=== PATIENT | male | born 1990 | race African-American/Black ===

== ENCOUNTER 2017-01-15 14:38 | Emergency (ER) | payer OTHER ==
[~2017-01-15 14:38] MED LIST: BENTYL20 MG DOB; BENZONATATE PO; CARAFATE1 G PO; CARAFATE1 GM PO; CIPRO PO; EC-NAPROSYN500 MG PO; FAMOTIDINE PO; FLEXERIL PO; FLEXERIL10 MG PO; KEFLEX500 M1 PO; KEFLEX500 MG PO; MOTRIN600 MG PO; NEXIUM20 MG PO; NO HOME MEDS; NO MEDICATIONS; NORCO 5/325 TAB1 TAB PO; OMEPRAZOLE20 M2 PO; OMEPRAZOLE40 M1 PO; PEPCID AC20 M2 PO; PHENERGAN SUPP25 M1 PR; PHENERGAN25 M1 PO; PHENERGAN25 MG PO; PRILOSEC PO; PRILOSEC20 MG PO; PROTONIX20 MG PO; REGLAN PO; ROBITUSSIN15 MG PO; ZOFRAN ODT4 MG PO; ZOFRAN ODT4 MG/UDTAB DOB; ZOFRAN ODT4 MG/UDTAB PO; ZOFRAN PO; ZOFRAN8 MG PO; ZOFRANODT PO; ZOFRANODT SL
== END 2017-01-15 15:47 | disposition home or self-care (01) ==
LOC: SED 14:38
DX: L03.011 Cellulitis of right finger (principal)
CPT/HCPCS: 10060; 99283

== ENCOUNTER 2017-07-23 15:26 | Emergency (ER) | payer OTHER ==
[~2017-07-23] VITALS: Ht 182.9 cm; Wt 131.5 kg
--- NOTE | ~2017-07-23 | CR181 ---
[facility]. [facility] A Service of [facility] & [facility] RADIOLOGY TEXT RESULTS PATIENT: MAITE NIX LOCATION: SED : [birth year] UNIT #: [id number] AGE: [address]: Michelle Yee MD SEX: M ORDER DR: [id number] [place] [id number] [id number] MR#: [id number] Acc #: [id number] NAME: MAITE NIX : 1990 SEX: M STUDY DATE/TIME: 07/23/2017 16:10 UNIT: SED ROOM: STUDY DESCRIPTION: CR Lumbar Spine 2 or 3 Views Attending Physician: Michelle Yee M.D. Ordering Physician: Michelle Yee M.D. Primary Care Physician: Francois Collado M.D. MEDICAL IMAGING REPORT This report is preliminary unless electronic signature is present. EXAM Lumbar spine 3 views HISTORY Back pain onset today, slept wrong. FINDINGS AP and lateral projections of the lumbar segment show good mineralization of both anterior and posterior elements. They are all anatomically normal without indication of fracture, dislocation, or malignant change of a sclerotic or lytic type. There is no congenital defect noted. The sacroiliac joints are normal. IMPRESSION Normal lumbar spine. Dictated by... Elly Wiley M.D. THIS IS AN ELECTRONICALLY VERIFIED REPORT Elly Wiley M.D. at 07/25/2017 3:12 PM LUCILA/jazz TD: 07/24/2017 10:05 JOB #: [id number] MEDICAL IMAGING REPORT Page 1 of 1
== END 2017-07-23 16:56 | disposition home or self-care (01) ==
LOC: SED 15:26
DX: S39.012A Strain of muscle, fascia and tendon of lower back, initial encounter (principal); X58.XXXA Exposure to other specified factors, initial encounter
CPT/HCPCS: 72100; 99283